=== PATIENT | female | born 1975 | race Caucasian/White ===

== ENCOUNTER 2016-08-06 20:09 | Emergency (ER) | payer MEDICAID ==
[~2016-08-06] VITALS: Ht 160 cm; Wt 94.3 kg
[~2016-08-06 20:09] MED LIST: SIMV20TA1 PO; SYN.025 PO
[2016-08-06 20:12] VITALS: BP 142/84
--- NOTE | 2016-08-06 20:51 | NUR ---
PT TAKEN TO BED 7
--- NOTE | 2016-08-06 20:55 | NUR ---
Dr. Connor evaluating patient at bedside.
--- NOTE | 2016-08-06 20:57 | NUR ---
41Y F BIB SPOUSE C/O OF BILATERAL EAR PAIN AND HEARING LOSS. PAIN IS 8/10 IN SCALE. DENIES N/V/D. NO DIZZINESS.
[2016-08-06 21:16] VITALS: BP 137/81
--- NOTE | 2016-08-06 21:18 | NUR ---
Patient discharged with v/s stable. Written and verbal after care instructions given and explained BY DR. POON Patient alert, oriented and verbalized understanding of instructions. Ambulatory with steady gait. All questions addressed prior to discharge. ID band removed. Patient advised to follow up with PMD. Rx of CERUMENEX EAR DROPS given. Patient educated on indication of medication including possible reaction and side effects. Opportunity to ask questions provided and answered.
== END 2016-08-06 21:18 | disposition home or self-care (01) ==
LOC: MED 20:09
DX: H61.23 Impacted cerumen, bilateral (principal); I10 Essential (primary) hypertension; Z86.73 Personal history of transient ischemic attack (TIA), and cerebral infarction without residual deficits
CPT/HCPCS: 99283

== ENCOUNTER 2016-11-17 18:24 | Emergency (ER) | payer MEDICAID ==
[~2016-11-17] VITALS: Ht 160 cm; Wt 92.5 kg
[2016-11-17 19:01] VITALS: BP 125/76
--- NOTE | 2016-11-17 19:33 | NUR ---
PT TAKEN TO OF3
--- NOTE | 2016-11-17 20:05 | NUR ---
Dr. Connor evaluating patient
[2016-11-17] MEDS ORDERED: ACETAMINOPHEN EXTRA STRENGTH 500 MG TAB PO ONE (20:15)
--- NOTE | 2016-11-17 20:16 | NUR ---
L&D RN OBTAINING HEART TONES IN TRIAGE ROOM
[2016-11-17 20:30] VITALS: BP 117/63
--- NOTE | 2016-11-17 20:30 | NUR ---
Patient discharged with v/s stable. Written and verbal after care instructions given and explained. Patient verbalized understanding. Ambulatory with steady gait. All questions addressed prior to discharge. Advised to follow up with PMD.
== END 2016-11-17 20:30 | disposition home or self-care (01) ==
LOC: MED 18:24
DX: O9A.212 Injury, poisoning and certain other consequences of external causes complicating pregnancy, second trimester (principal); S61.214A Laceration without foreign body of right ring finger without damage to nail, initial encounter; E11.9 Type 2 diabetes mellitus without complications; I10 Essential (primary) hypertension; Z3A.24 24 weeks gestation of pregnancy; Z86.73 Personal history of transient ischemic attack (TIA), and cerebral infarction without residual deficits; W45.8XXA Other foreign body or object entering through skin, initial encounter; Y93.G1 Activity, food preparation and clean up; Y92.89 Other specified places as the place of occurrence of the external cause; Y99.8 Other external cause status
CPT/HCPCS: 12001; 99283

== ENCOUNTER 2018-02-07 21:10 | Emergency (ER) | payer MEDICAID ==
[~2018-02-07] VITALS: Ht 162.6 cm; Wt 92.6 kg
[2018-02-07 21:14] VITALS: BP 130/91
--- NOTE | 2018-02-07 21:19 | NUR ---
PT AMBULATED TO ED SIOBHAN
--- NOTE | 2018-02-07 21:28 | NUR ---
TO ER BED 11
--- NOTE | 2018-02-07 21:30 | NUR ---
PT BIB SELF C/O INJURY TO RT INDEX FINGER. PT STATES SHE WAS AT WORK EARLIER TODAY AND "BENT FINGER BACK ON BOX". +CMS, SKIN INTACT, REDNESS AND SWELLING NOTED.
[2018-02-07] MEDS ORDERED: KETOROLAC 60 MG/2 ML VIAL IM ONE (21:40)
[2018-02-07 22:10] VITALS: BP 127/88
--- NOTE | 2018-02-07 22:10 | NUR ---
Patient discharged with v/s stable. Written and verbal after care instructions given and explained. Patient alert, oriented and verbalized understanding of instructions. Ambulatory with steady gait. All questions addressed prior to discharge. ID band removed. Patient advised to follow up with PMD. Rx of NORCO, MOTRIN given. Patient educated on indication of medication including possible reaction and side effects. Opportunity to ask questions provided and answered.
== END 2018-02-07 22:10 | disposition home or self-care (01) ==
LOC: MED 21:10
DX: S63.610A Unspecified sprain of right index finger, initial encounter (principal); Z86.73 Personal history of transient ischemic attack (TIA), and cerebral infarction without residual deficits; Z90.89 Acquired absence of other organs; Z79.899 Other long term (current) drug therapy; X58.XXXA Exposure to other specified factors, initial encounter; Y93.89 Activity, other specified; Y92.89 Other specified places as the place of occurrence of the external cause; Y99.8 Other external cause status
CPT/HCPCS: 29130; 96372; 99283; J1885; 81025

== ENCOUNTER 2018-07-15 22:44 | Emergency (ER) | payer MEDICAID ==
[~2018-07-15] VITALS: Ht 162.6 cm; Wt 89.8 kg
[2018-07-15 22:44] VITALS: BP 117/74
--- NOTE | 2018-07-15 22:44 | NUR ---
PATIENT AMBULATED TO ER BED 7.
--- NOTE | 2018-07-15 22:50 | NUR ---
PT BIB S/O C/O ABD PAIN. PT STATES LRQ ABD PAIN X1 DAY. 8/10 SHARP PAIN, RADIATES TO RIGHT LOWER BACK. PT DENIES N/V/D; SKIN IS INTACT, PINK/WARM/DRY; AAOX4, PERRL, WITH EVEN AND STEADY GAIT; LUNGS CLEAR BL, BREATHING UNLABORED; HR EVEN AND REGULAR, BL PERIPHERAL PULSES PRESENT; BS ACTIVE X4, NO TENDERNESS TO PALPATION, NO HEPATOSPLENOMEGALLY PALPATED, RESONANT TO PERCUSSION; PT DENIES ANY FEVER, CP, SOB, OR COUGH AT THIS TIME; VSS; PATIENT POSITIONED FOR COMFORT; HOB ELEVATED; BEDRAILS UP X2; BED DOWN. PMH: DENIES RX: DENIES
[2018-07-15] MEDS ORDERED: MORPHINE SULFATE 4 MG/ML SYR IM/IVP ONE (23:05)
[2018-07-15] MEDS ORDERED: ONDANSETRON 4 MG ODT PO ONE (23:05)
[2018-07-15 23:30] LABS: BASOPHILS % (AUTO) 0.7 % (0.0-2.0); EOSINOPHILS # (AUTO) 0.1 K/uL (0-0.4); EOSINOPHILS % (AUTO) 2.5 % (0.0-4.0); HEMATOCRIT 39.1 % (36-48); HEMOGLOBIN 13.4 g/dL (12.0-16.0); LYMPHOCYTES # (AUTO) 2.5 K/uL (2.5-16.5); LYMPHOCYTES % (AUTO) 43.5 % (20.5-51.1); MEAN CORPUSCULAR HEMOGLOBIN 33 pg (27-31); MEAN CORPUSCULAR HGB CONC 34 g/dL (33-37); MEAN CORPUSCULAR VOLUME 95.5 fL (80-94); MONOCYTES # (AUTO) 0.8 K/uL (0.8-1.0); MONOCYTES % (AUTO) 13.1 % (1.7-9.3); NEUTROPHILS # (AUTO) 2.3 K/uL (1.8-7.7); NEUTROPHILS % (AUTO) 40.2 % (42.2-75.2); PLATELET COUNT (AUTO) 230 K/uL (140-450); RED CELL DISTRIBUTION WIDTH 12.8 % (11.6-13.7); WHITE BLOOD COUNT (AUTO) 5.8 K/uL (4.8-10.8)
[2018-07-15 23:42] LABS: APPEARANCE,URINE SLIGHTLY CLOUDY (CLEAR)
[2018-07-15 23:43] LABS: BILIRUBIN,URINE NEGATIVE (NEGATIVE); BLOOD, URINE NEGATIVE (NEGATIVE); COLOR,URINE YELLOW (YELLOW); LEUKOCYTE ESTERASE ,URINE 1+ (NEGATIVE); NITRITE, URINE POSITIVE (NEGATIVE); UGLUCOSE NEGATIVE (NEGATIVE)
[2018-07-15 23:48] LABS: RBC,URINE 0-5 /HPF (0-5)
[2018-07-15 23:49] LABS: WBC,URINE 20-60 /HPF (0-5)
[2018-07-15 23:50] LABS: ALBUMIN 3.6 g/dL (3.4-5.0); ANION GAP 14.1 (8-16); CARBON DIOXIDE 25.2 mmol/L (21-32); CREATININE 0.7 mg/dL (0.6-1.3); POTASSIUM 3.3 mmol/L (3.5-5.1); TOTAL BILIRUBIN 0.4 mg/dL (0.0-1.0)
--- NOTE | 2018-07-16 00:12 | NUR ---
Patient discharged with v/s stable. Written and verbal after care instructions given and explained. Patient alert, oriented and verbalized understanding of instructions. Ambulatory with steady gait. All questions addressed prior to discharge. ID band removed. Patient advised to follow up with PMD. Rx of Erbacon, Cirpfloxacin, and Zofran given. Patient educated on indication of medication including possible reaction and side effects. Opportunity to ask questions provided and answered.
[2018-07-16 01:08] VITALS: BP 121/78
== END 2018-07-16 00:12 | disposition home or self-care (01) ==
LOC: MED 22:44
DX: N39.0 Urinary tract infection, site not specified (principal); E07.9 Disorder of thyroid, unspecified; Z86.73 Personal history of transient ischemic attack (TIA), and cerebral infarction without residual deficits; Z79.899 Other long term (current) drug therapy
CPT/HCPCS: 36415; 74176; 80053; 81001; 81025; 85025; 87086; 96372; 99284; J2270; Q0162

== ENCOUNTER 2019-04-02 18:03 | Emergency (ER) | payer MEDICAID ==
[~2019-04-02] VITALS: Ht 162.6 cm; Wt 91.2 kg
[2019-04-02 18:23] VITALS: BP 128/74
--- NOTE | 2019-04-02 18:25 | NUR ---
RECIEVED PATIENT FROM TRIAGE WITH C/O RIGHT LOWER ABD PAIN X2 DAYS, TOOK MOTRIN 600MG PO TODAY AT 3P WHICH HELPED A LITTLE, THEN STARTED AGAIN, SO SHE CAME TO THE ED. AAOX4 SKIN W/D TO TOUCH. NAD NOTED. AT PRESENT PAIN LEVEL IS 7/10. PENDING MD PUENTE
--- NOTE | 2019-04-02 19:13 | NUR ---
END OF SHIFT REPORT TO 7PM RN.
--- NOTE | 2019-04-02 19:15 | NUR ---
PATIENT SEEN AT BEDSIDE BY ER MD DR HUITRON.
[2019-04-02 19:43] LABS: BASOPHILS % (AUTO) 0.4 % (0.0-2.0); EOSINOPHILS # (AUTO) 0.1 K/uL (0-0.4); EOSINOPHILS % (AUTO) 1.2 % (0.0-4.0); HEMATOCRIT 37.4 % (36-48); HEMOGLOBIN 12.7 g/dL (12.0-16.0); LYMPHOCYTES # (AUTO) 1.8 K/uL (2.5-16.5); LYMPHOCYTES % (AUTO) 22.6 % (20.5-51.1); MEAN CORPUSCULAR HEMOGLOBIN 33 pg (27-31); MEAN CORPUSCULAR HGB CONC 34 g/dL (33-37); MEAN CORPUSCULAR VOLUME 97.1 fL (80-94); MONOCYTES # (AUTO) 0.7 K/uL (0.8-1.0); MONOCYTES % (AUTO) 8.8 % (1.7-9.3); NEUTROPHILS # (AUTO) 5.3 K/uL (1.8-7.7); PLATELET COUNT (AUTO) 243 K/uL (140-450); RED BLOOD CELL COUNT(AUTO) 3.85 MIL/uL (4.20-5.40); RED CELL DISTRIBUTION WIDTH 12.5 % (11.6-13.7); WHITE BLOOD COUNT (AUTO) 7.9 K/uL (4.8-10.8)
[2019-04-02 20:06] LABS: APPEARANCE,URINE CLEAR (CLEAR); BILIRUBIN,URINE NEGATIVE (NEGATIVE); BLOOD, URINE NEGATIVE (NEGATIVE); COLOR,URINE YELLOW (YELLOW); LEUKOCYTE ESTERASE ,URINE NEGATIVE (NEGATIVE); NITRITE, URINE NEGATIVE (NEGATIVE); UGLUCOSE TRACE (NEGATIVE)
[2019-04-02 20:22] LABS: ANION GAP 14.1 (8-16); CARBON DIOXIDE 23.3 mmol/L (21-32); CREATININE 0.5 mg/dL (0.6-1.3); POTASSIUM 3.4 mmol/L (3.5-5.1)
[2019-04-02 20:28] LABS: ALBUMIN 2.8 g/dL (3.4-5.0); TOTAL BILIRUBIN 0.2 mg/dL (0.0-1.0)
[2019-04-02 22:45] VITALS: BP 121/67
--- NOTE | 2019-04-02 22:45 | NUR ---
PT DISCHARGED WITH PAPERWORK. NO MEDICATION RX PROVIDED. EDUCATED PT REGARDING D/C DIAGNOSIS AND INSTRUCTIONS. PT VERBALIZED UNDERSTANDING OF TEACHING. TOLD PT TO FOLLOW UP WITH PCP AND WHEN TO RETURN TO ED. PT AT STABLE CONDITION. ALL QUESTIONS ANSWERED.
== END 2019-04-02 22:45 | disposition home or self-care (01) ==
LOC: MED 18:03
DX: O26.891 Other specified pregnancy related conditions, first trimester (principal); R10.31 Right lower quadrant pain; O24.112 Pre-existing type 2 diabetes mellitus, in pregnancy, second trimester; O10.912 Unspecified pre-existing hypertension complicating pregnancy, second trimester; E11.9 Type 2 diabetes mellitus without complications; Z3A.27 27 weeks gestation of pregnancy; Z86.73 Personal history of transient ischemic attack (TIA), and cerebral infarction without residual deficits; Z86.39 Personal history of other endocrine, nutritional and metabolic disease; Z79.899 Other long term (current) drug therapy
CPT/HCPCS: 36415; 76805; 80053; 81003; 84702; 85025; 86900; 86901; Q0092

== ENCOUNTER 2020-01-21 19:34 | Emergency (ER) | payer MEDICAID ==
[~2020-01-21] VITALS: Ht 157.5 cm; Wt 93.4 kg
[2020-01-21 19:59] VITALS: BP 138/68
[2020-01-21] MEDS ORDERED: diazePAM 5 MG TAB PO ONE (20:30)
[2020-01-21] MEDS ORDERED: KETOROLAC 30 MG/ML VIAL IVP ONE (20:30)
[2020-01-21] MEDS ORDERED: NACL 0.9% 1,000 ML IV ONE (20:30)
[2020-01-21 20:52] LABS: EOSINOPHILS # (AUTO) 0.2 K/uL (0-0.4); EOSINOPHILS % (AUTO) 3.5 % (0.0-4.0); HEMATOCRIT 41.4 % (36-48); HEMOGLOBIN 14.1 g/dL (12.0-16.0); MEAN CORPUSCULAR HEMOGLOBIN 33 pg (27-31); MEAN CORPUSCULAR HGB CONC 34 g/dL (33-37); MONOCYTES # (AUTO) 0.5 K/uL (0.8-1.0); MONOCYTES % (AUTO) 10.8 % (1.7-9.3); NEUTROPHILS % (AUTO) 42.7 % (42.2-75.2); PLATELET COUNT (AUTO) 260 K/uL (140-450); RED BLOOD CELL COUNT(AUTO) 4.31 MIL/uL (4.20-5.40); RED CELL DISTRIBUTION WIDTH 12.7 % (11.6-13.7); WHITE BLOOD COUNT (AUTO) 4.7 K/uL (4.8-10.8)
[2020-01-21 20:57] LABS: ANION GAP 12.5 (8-16); CREATININE 0.8 mg/dL (0.6-1.3); POTASSIUM 3.5 mmol/L (3.5-5.1)
[2020-01-21 22:48] VITALS: BP 118/74
== END 2020-01-21 22:48 | disposition home or self-care (01) ==
LOC: MED 19:34
DX: M54.2 Cervicalgia (principal); I88.9 Nonspecific lymphadenitis, unspecified; M62.838 Other muscle spasm; M54.10 Radiculopathy, site unspecified; E11.9 Type 2 diabetes mellitus without complications; I10 Essential (primary) hypertension; E07.9 Disorder of thyroid, unspecified; Z98.890 Other specified postprocedural states
CPT/HCPCS: 36415; 70491; 80048; 85025; 96361; 96374; 99285; J1885; J7030; Q9967

== ENCOUNTER 2020-02-11 07:15 | Emergency (ER) | payer MEDICAID ==
[~2020-02-11] VITALS: Ht 162.6 cm; Wt 89.8 kg
[2020-02-11 07:18] VITALS: BP 123/76
--- NOTE | 2020-02-11 07:27 | NUR ---
W/C ASSISTED TO BED 4
--- NOTE | 2020-02-11 07:29 | NUR ---
45 y/o female from home c/o left leg pain s/o mechanical fall yesterday. Pt states she slipped on water at her home and hit leg on the ground. No deformities noted. Mild swelling and brusing noted to below the knee. Pt able to ambulate. 6/10 constant throbbing pain. Skin warm, dry, intact. +cms, cap refill <2 sec. VSS
--- NOTE | 2020-02-11 07:30 | NUR ---
Dr Wilson at bedside examining pt
--- NOTE | 2020-02-11 07:31 | NUR ---
Dr. Wilson evaluating patient bedside
--- NOTE | 2020-02-11 07:38 | NUR ---
X-Ray at bedside.
[2020-02-11 08:28] VITALS: BP 123/76
--- NOTE | 2020-02-11 08:30 | NUR ---
Patient discharged with v/s stable. Written and verbal after care instructions given and explained. Patient alert, oriented and verbalized understanding of instructions. Ambulatory with steady gait. All questions addressed prior to discharge. ID band removed. Patient advised to follow up with PMD. Rx of Ibuprofen 600mg given. Patient educated on indication of medication including possible reaction and side effects. Opportunity to ask questions provided and answered.
== END 2020-02-11 08:30 | disposition home or self-care (01) ==
LOC: MED 07:15
DX: M25.562 Pain in left knee (principal); M13.862 Other specified arthritis, left knee; E11.9 Type 2 diabetes mellitus without complications; I10 Essential (primary) hypertension; E07.9 Disorder of thyroid, unspecified; W18.39XA Other fall on same level, initial encounter; Y93.89 Activity, other specified; Y92.89 Other specified places as the place of occurrence of the external cause; Y99.8 Other external cause status
CPT/HCPCS: 73562; 99283; Q0092

== ENCOUNTER 2020-11-19 07:58 | Emergency (ER) | payer MEDICAID ==
[~2020-11-19] VITALS: Ht 162.6 cm; Wt 93.9 kg
[2020-11-19 08:01] VITALS: BP 130/71
--- NOTE | 2020-11-19 08:08 | NUR ---
Patient ambulated to bed 8. RN evaluating the patient at bedside.
--- NOTE | 2020-11-19 08:13 | NUR ---
pt in chair outside per charge.
--- NOTE | 2020-11-19 08:18 | NUR ---
DR TIAN EVALUATING PT OUTSIDE.
[2020-11-19] MEDS ORDERED: ACET-10509 PO (08:22)
[2020-11-19] MEDS ORDERED: IBUP-1842 PO (08:22)
--- NOTE | 2020-11-19 08:26 | NUR ---
45 Y/O F BIB SELF FROM HOME, PATIENT PRESENTS TO ED WITH SORE THROAT, CHILLS, FEVERS, AND HEADACHE SINCE 11/07/20. PT STATES SHE HAD GOTTEN THE 1ST DOSE OF COVID VACCINE AND STARTED HAVING SYMPTOMS. DENIES N/V/D; SKIN IS PINK/WARM/DRY; AAOX4 WITH EVEN AND STEADY GAIT; LUNGS COARSE BL; HR EVEN AND REGULAR; PT DENIES ANY CP OR SOB AT THIS TIME; PATIENT STATES PAIN OF 8/10 AT THIS TIME; VSS; PATIENT POSITIONED FOR COMFORT; PT IS CURRENTLY IN CHAIR OUTSIDE FACILITY PER COVID PRECAUTIONS, ISOLATION ROOM NOT AVAILABLE AT THIS TIME. ER MD MADE AWARE OF PT STATUS. PMH: DENIES CAS
--- NOTE | 2020-11-19 08:34 | NUR ---
PT WAS SWABBED FOR ALVAREZ AND FLU, LEFT AT TOOL ROOM SUPERVISOR, NOTIFIED
[2020-11-19 08:53] VITALS: BP 130/71
--- NOTE | 2020-11-19 08:54 | NUR ---
Patient discharged with v/s stable. Written and verbal after care instructions given and explained. Patient alert, oriented and verbalized understanding of instructions. Ambulatory with steady gait. All questions addressed prior to discharge. ID band removed. Patient advised to follow up with PMD. Rx of TYLENOL, IBUPROFEN given. Patient educated on indication of medication including possible reaction and side effects. Opportunity to ask questions provided and answered.
== END 2020-11-19 08:47 | disposition home or self-care (01) ==
LOC: MED 07:58
DX: B34.9 Viral infection, unspecified (principal); Z20.822 Contact with and (suspected) exposure to COVID-19; E11.9 Type 2 diabetes mellitus without complications; I10 Essential (primary) hypertension; E07.9 Disorder of thyroid, unspecified; Z79.899 Other long term (current) drug therapy
CPT/HCPCS: 87426; 87804; 99283; U0003

== ENCOUNTER 2021-05-30 20:53 | Emergency (ER) | payer MEDICAID ==
[~2021-05-30] VITALS: Ht 162.6 cm; Wt 89.4 kg
[~2021-05-30 20:53] MED LIST changes: +ACET-10509 PO; +IBUP-1842 PO
[2021-05-30 21:24] VITALS: BP 127/84
--- NOTE | 2021-05-30 21:30 | NUR ---
PT SENT TO LOBBY.
--- NOTE | 2021-05-30 21:40 | NUR ---
PT BEING EXAMINED BY DR PEREZ WITH ME PRESENT IN TRIAGE.
[2021-05-30] MEDS ORDERED: BACI-352 TP (21:43)
[2021-05-30] MEDS ORDERED: DOXY-487 PO (21:43)
[2021-05-30 21:50] VITALS: BP 127/84
--- NOTE | 2021-05-30 21:50 | NUR ---
Patient discharged with v/s stable. Written and verbal after care instructions given and explained. Patient alert, oriented and verbalized understanding of instructions. Ambulatory with steady gait. All questions addressed prior to discharge. ID band removed. Patient advised to follow up with PMD. Rx of NEOMYCIN given. Patient educated on indication of medication including possible reaction and side effects. Opportunity to ask questions provided and answered.
== END 2021-05-30 21:50 | disposition home or self-care (01) ==
LOC: MED 20:53
DX: L02.215 Cutaneous abscess of perineum (principal); E11.9 Type 2 diabetes mellitus without complications; I10 Essential (primary) hypertension; E07.9 Disorder of thyroid, unspecified; Z79.899 Other long term (current) drug therapy; Z86.73 Personal history of transient ischemic attack (TIA), and cerebral infarction without residual deficits
CPT/HCPCS: 99283

== ENCOUNTER 2021-06-27 07:05 | Emergency (ER) | payer MEDICAID ==
[~2021-06-27] VITALS: Ht 160 cm; Wt 88.9 kg
[~2021-06-27 07:05] MED LIST changes: +BACI-352 TP; +DOXY-487 PO
[2021-06-27 07:16] VITALS: BP 128/75
--- NOTE | 2021-06-27 07:20 | NUR ---
pt ambulated to bed 06 with even and steady gait, pt providing urine sample at this time.
--- NOTE | 2021-06-27 07:25 | NUR ---
46 Y/O F PRESENTS TO ED WITH NVD. PT STATES STARTED ON TUESDAY. STATES FEVER 101.0 AT HOME, SELF EMDICATED WITH TYLENOL. SKIN IS PINK/WARM/DRY; AAOX4 WITH EVEN AND STEADY GAIT; LUNGS CLEAR BL; HR EVEN AND REGULAR; PT COMPLAINS OF CORE THROAT. PT DENIES ANY CP, SOB, OR COUGH AT THIS TIME; PATIENT STATES PAIN OF 9/10 AT THIS TIME; VSS; PATIENT POSITIONED FOR COMFORT; HOB ELEVATED; BEDRAILS UP X2; BED DOWN. ER MD MADE AWARE OF PT STATUS. PMH: DENIES MEDS: TYLENOL THIS MORNING
[2021-06-27] MEDS ORDERED: ONDANSETRON 4 MG/2 ML VIAL IVP ONE (07:30)
[2021-06-27] MEDS ORDERED: FAMOTIDINE 20 MG/2 ML VIAL IVP ONE (07:30)
--- NOTE | 2021-06-27 07:38 | NUR ---
labs drawn from iv 18g left ac at this time, given to rebecca in lab at this time.
[2021-06-27 07:58] LABS: BASOPHILS % (AUTO) 0.1 % (0.0-2.0); EOSINOPHILS % (AUTO) 0.2 % (0.0-4.0); HEMATOCRIT 40.5 % (36-48); HEMOGLOBIN 14.3 g/dL (12.0-16.0); LYMPHOCYTES # (AUTO) 0.8 K/uL (2.5-16.5); LYMPHOCYTES % (AUTO) 8.6 % (20.5-51.1); MEAN CORPUSCULAR HEMOGLOBIN 33 pg (27-31); MEAN CORPUSCULAR HGB CONC 35 g/dL (33-37); MEAN CORPUSCULAR VOLUME 93.2 fL (80-94); MONOCYTES # (AUTO) 0.6 K/uL (0.8-1.0); MONOCYTES % (AUTO) 5.8 % (1.7-9.3); NEUTROPHILS # (AUTO) 8.2 K/uL (1.8-7.7); NEUTROPHILS % (AUTO) 85.3 % (42.2-75.2); PLATELET COUNT (AUTO) 215 K/uL (140-450); RED BLOOD CELL COUNT(AUTO) 4.35 MIL/uL (4.20-5.40); WHITE BLOOD COUNT (AUTO) 9.6 K/uL (4.8-10.8)
[2021-06-27 08:08] LABS: ALBUMIN 3.6 g/dL (3.4-5.0); ANION GAP 11.9 (8-16); CARBON DIOXIDE 24.3 mmol/L (21-32); CREATININE 0.8 mg/dL (0.6-1.3); POTASSIUM 3.2 mmol/L (3.5-5.1); TOTAL BILIRUBIN 0.5 mg/dL (0.0-1.0)
[2021-06-27] MEDS ORDERED: POTASSIUM CHLORIDE 10 MEQ TABER PO ONE (08:55)
--- NOTE | 2021-06-27 09:02 | NUR ---
water given at this time for po challenge with meds. pt states her epigastric pain is now 0/10 and no nausea at this time.
--- NOTE | 2021-06-27 09:09 | NUR ---
pt taken to ct at this time via wheelchair
--- NOTE | 2021-06-27 09:24 | NUR ---
PT RETURNED FROM CT
--- NOTE | 2021-06-27 09:55 | NUR ---
Patient appears to be resting comfortably in bed. Vital Signs within normal limits. Respirations even and unlabored.
[2021-06-27 11:24] VITALS: BP 131/73
== END 2021-06-27 11:28 | disposition home or self-care (01) ==
LOC: MED 07:05
DX: N20.0 Calculus of kidney (principal); R11.2 Nausea with vomiting, unspecified
CPT/HCPCS: 36415; 74177; 80053; 81002; 81025; 83690; 84484; 85025; 93005; 96374; 96375; 99285; J2405; J3490; Q9967

== ENCOUNTER 2021-06-29 21:09 | Emergency (ER) | payer MEDICAID ==
[~2021-06-29] VITALS: Ht 162.6 cm; Wt 87.5 kg
[2021-06-29 21:15] VITALS: BP 125/82
--- NOTE | 2021-06-29 21:23 | NUR ---
PT TAKEN TO BED 01.
--- NOTE | 2021-06-29 21:36 | NUR ---
46 Y/O F BIB SELF W C/O SORETHROAT 02/08 X1 DAYS, + FEVER HIGHEST OF 100.1. PT REPORTS DIFF SWALLOWING D/T PAIN. PT DENIES ANY CHEST PAIN, COUGH, SOB, N/V/D. PT REPORTS SHE WAS HERE ON SAT FOR N/V/D BUT SYMPTOMS HAVE RESOLVED. PT TOOK TYLENOL APPROX X1 HOURS AGO W/O RELIEF. VSS UPON TRIAGE ASSESSMENT W/O FEVER. PT WOULD LIKE MEDICATION FOR THE SORETHROAT, ERMD MADE AWARE. PMH:DENIES ALLERGIES:DENIES
--- NOTE | 2021-06-29 21:36 | NUR ---
ALVAREZ SAMPLE COLLECTED FROM PT NARES AND SENT TO LAB.
--- NOTE | 2021-06-29 22:04 | NUR ---
Dr. Chan examining patient.
--- NOTE | 2021-06-29 22:40 | NUR ---
STREP SWABS COLLECTED FROM PT THROAT AND SENT TO LAB.
[2021-06-29] MEDS: KETOROLAC 30 MG/ML VIAL IM ONE (22:42)
--- NOTE | 2021-06-29 23:26 | NUR ---
PT REPORTS IMPROVEMENT OF SORE THROAT PAIN.
[2021-06-30] MEDS ORDERED: DEC4 PO (00:41)
[2021-06-30] MEDS ORDERED: IBUP-2213 PO (00:41)
[2021-06-30 01:00] VITALS: BP 105/67
--- NOTE | 2021-06-30 01:00 | NUR ---
Patient discharged with v/s stable. Written and verbal after care instructions given and explained. Patient alert, oriented and verbalized understanding of instructions. Ambulatory with steady gait. All questions addressed prior to discharge. ID band removed. Patient advised to follow up with PMD. Rx of DECADRON, IBUPROFEN given. Patient educated on indication of medication including possible reaction and side effects. Opportunity to ask questions provided and answered.
== END 2021-06-30 01:00 | disposition home or self-care (01) ==
LOC: MED 21:09
DX: J02.8 Acute pharyngitis due to other specified organisms (principal); B97.89 Other viral agents as the cause of diseases classified elsewhere; J35.1 Hypertrophy of tonsils; Z20.822 Contact with and (suspected) exposure to COVID-19; E11.9 Type 2 diabetes mellitus without complications; I10 Essential (primary) hypertension; Z86.73 Personal history of transient ischemic attack (TIA), and cerebral infarction without residual deficits; Z86.39 Personal history of other endocrine, nutritional and metabolic disease; Z79.899 Other long term (current) drug therapy; Z79.1 Long term (current) use of non-steroidal anti-inflammatories (NSAID); Z79.2 Long term (current) use of antibiotics
CPT/HCPCS: 87081; 87426; 96372; 99283; J1885

== ENCOUNTER 2021-10-12 11:19 | Emergency (ER) | payer MEDICAID ==
[~2021-10-12] VITALS: Ht 162.6 cm; Wt 92.5 kg
[~2021-10-12 11:19] MED LIST changes: +DEC4 PO; +IBUP-2213 PO
[2021-10-12 11:24] VITALS: BP 138/84
--- NOTE | 2021-10-12 11:31 | NUR ---
PT AMBULATED TO BATHROOM WITH STEADY GAIT
--- NOTE | 2021-10-12 11:44 | NUR ---
46 Y/O FEMALE C/O RIGHT LOWER QUADRANT ABDOMINAL PAIN X YESTERDAY. DENIES ANY FEVER, URINARY SYMPTOMS, DENIES N/V/D. TOOK MOTRIN 600MG WITH MODERATE EFFECT. PT DENIES ANY ALLEVIATING OR AGRGEVATING FACTORS. PT DENIES CHEST PAIN, SOB. PT DENIES CHILLS. LUNGS CTA. BED LOCKED IN LOWEST POSITION. BED RAILX1. NKA PMH: DENIES
--- NOTE | 2021-10-12 11:58 | NUR ---
DR CORREIA AT BEDSIDE FOR EVAL
--- NOTE | 2021-10-12 11:58 | NUR ---
AT PT BEDSIDE
[2021-10-12] MEDS ORDERED: KETOROLAC 30 MG/ML VIAL IVP ONE (12:00)
--- NOTE | 2021-10-12 12:11 | NUR ---
PT TAKEN TO CT VIA DEBBY
--- NOTE | 2021-10-12 12:15 | NUR ---
LAB DRAWN HANDED TO THERMOSTATIC CONTROLS SUPERVISOR
[2021-10-12 12:53] LABS: BASOPHILS % (AUTO) 0.3 % (0.0-2.0); EOSINOPHILS # (AUTO) 0.1 K/uL (0-0.4); EOSINOPHILS % (AUTO) 0.7 % (0.0-4.0); HEMATOCRIT 40.1 % (36-48); HEMOGLOBIN 13.9 g/dL (12.0-16.0); LYMPHOCYTES # (AUTO) 1.5 K/uL (2.5-16.5); LYMPHOCYTES % (AUTO) 16.3 % (20.5-51.1); MEAN CORPUSCULAR HEMOGLOBIN 33 pg (27-31); MEAN CORPUSCULAR HGB CONC 35 g/dL (33-37); MEAN CORPUSCULAR VOLUME 93.8 fL (80-94); MONOCYTES # (AUTO) 0.6 K/uL (0.8-1.0); MONOCYTES % (AUTO) 6.5 % (1.7-9.3); NEUTROPHILS # (AUTO) 6.8 K/uL (1.8-7.7); NEUTROPHILS % (AUTO) 76.2 % (42.2-75.2); PLATELET COUNT (AUTO) 223 K/uL (140-450); RED BLOOD CELL COUNT(AUTO) 4.27 MIL/uL (4.20-5.40); RED CELL DISTRIBUTION WIDTH 12.6 % (11.6-13.7)
[2021-10-12 12:55] LABS: APPEARANCE,URINE SL CLOUDY (CLEAR); BILIRUBIN,URINE NEGATIVE (NEGATIVE); BLOOD, URINE TRACE-L (NEGATIVE); COLOR,URINE YELLOW (YELLOW); LEUKOCYTE ESTERASE ,URINE NEGATIVE (NEGATIVE); NITRITE, URINE NEGATIVE (NEGATIVE); UGLUCOSE NEGATIVE (NEGATIVE)
[2021-10-12 13:04] LABS: ALBUMIN 3.7 g/dL (3.4-5.0); ANION GAP 12.4 (8-16); CREATININE 0.8 mg/dL (0.6-1.3); POTASSIUM 3.4 mmol/L (3.5-5.1); TOTAL BILIRUBIN 0.6 mg/dL (0.0-1.0)
[2021-10-12 13:09] LABS: RBC,URINE 0-5 /HPF (0-5); WBC,URINE 0-5 /HPF (0-5)
[2021-10-12 13:10] LABS: OTHER CASTS, URINE None Seen /LPF (None Seen)
[2021-10-12] MEDS ORDERED: IBUP-2213 PO (13:46)
[2021-10-12] MEDS ORDERED: ACET-8386 PO (13:46)
[2021-10-12 14:00] VITALS: BP 108/58
--- NOTE | 2021-10-12 14:32 | NUR ---
Patient discharged with v/s stable. Written and verbal after care instructions given and explained. Patient alert, oriented and verbalized understanding of instructions. Ambulatory with steady gait. All questions addressed prior to discharge. ID band removed. Patient advised to follow up with PMD. Rx of IBUPROFEN,HYDROCODONE given. Patient educated on indication of medication including possible reaction and side effects. Opportunity to ask questions provided and answered.
== END 2021-10-12 14:32 | disposition home or self-care (01) ==
LOC: MED 11:19
DX: R10.31 Right lower quadrant pain (principal); Z86.73 Personal history of transient ischemic attack (TIA), and cerebral infarction without residual deficits; Z86.39 Personal history of other endocrine, nutritional and metabolic disease; Z98.890 Other specified postprocedural states; Z79.899 Other long term (current) drug therapy; Z79.1 Long term (current) use of non-steroidal anti-inflammatories (NSAID); Z79.2 Long term (current) use of antibiotics
CPT/HCPCS: 36415; 74176; 80053; 81001; 81025; 83690; 85025; 96374; 99284; J1885

== ENCOUNTER 2022-02-23 12:35 | Emergency (ER) | payer MEDICAID ==
[~2022-02-23] VITALS: Ht 162.6 cm; Wt 92.6 kg
[~2022-02-23 12:35] MED LIST changes: +ACET-8386 PO; +SIMV-372 PO; -SIMV20TA1 PO
[2022-02-23 12:49] VITALS: BP 123/84
--- NOTE | 2022-02-23 12:55 | NUR ---
PT TO TOBIN MCCANN
--- NOTE | 2022-02-23 13:12 | NUR ---
TO ER BED 6
--- NOTE | 2022-02-23 13:20 | NUR ---
47/F WALKED IN C/O LT SIDED ARM AND NECK NUMBNESS ONSET 1 DAY ACCOMPANIED BY SOB AT WORK THIS MORNING. DENIES ANY SOB AT THIS TIME, EQUAL PIPE CLEANER STRENGTH B/L ARM. DENIES FACIAL DROOP OR SPEECH SLUR. AAO4. PMH: NONE.
[2022-02-23] MEDS ORDERED: KETOROLAC 30 MG/ML VIAL IM ONE (13:50)
[2022-02-23] MEDS ORDERED: NAPR-1704 PO (14:27)
[2022-02-23] MEDS ORDERED: CAPS1ADH5 TP (14:27)
[2022-02-23 14:50] VITALS: BP 123/84
--- NOTE | 2022-02-23 14:50 | NUR ---
Patient discharged with v/s stable. Written and verbal after care instructions FOR MUSCLE SPRAIN given and explained. Patient alert, oriented and verbalized understanding of instructions. Ambulatory with steady gait. All questions addressed prior to discharge. ID band removed. Patient advised to follow up with PMD. Rx of NAPROXEN AND SALONPAS given. Opportunity to ask questions provided and answered.
--- NOTE | 2022-02-23 14:51 | NUR ---
Chart checked and completed. The patient's care was reviewed and supervised by Sudha Burnett RN.
== END 2022-02-23 14:50 | disposition home or self-care (01) ==
LOC: MED 12:35
DX: S46.811A Strain of other muscles, fascia and tendons at shoulder and upper arm level, right arm, initial encounter (principal); E07.9 Disorder of thyroid, unspecified; Z86.73 Personal history of transient ischemic attack (TIA), and cerebral infarction without residual deficits; Z79.899 Other long term (current) drug therapy; X58.XXXA Exposure to other specified factors, initial encounter; Y93.89 Activity, other specified; Y92.89 Other specified places as the place of occurrence of the external cause; Y99.8 Other external cause status
CPT/HCPCS: 81002; 81025; 96372; 99283; J1885

== ENCOUNTER 2022-07-15 11:09 | Emergency (ER) | payer MEDICAID ==
[~2022-07-15] VITALS: Ht 162.6 cm; Wt 88.7 kg
[~2022-07-15 11:09] MED LIST changes: -ACET-8386 PO; +ACET-8905 PO; +CAPS1ADH5 TP; +NAPR-1704 PO
[2022-07-15 11:24] VITALS: BP 124/65
[2022-07-15] MEDS ORDERED: ONDANSETRON 4 MG ODT PO ONE (11:30)
--- NOTE | 2022-07-15 11:30 | NUR ---
PT AMB TO BED 7
[2022-07-15 11:56] LABS: BASOPHILS % (AUTO) 0.5 % (0.0-2.0); EOSINOPHILS # (AUTO) 0.1 K/uL (0-0.4); EOSINOPHILS % (AUTO) 1.9 % (0.0-4.0); HEMOGLOBIN 13.5 g/dL (12.0-16.0); LYMPHOCYTES # (AUTO) 1.8 K/uL (2.5-16.5); LYMPHOCYTES % (AUTO) 28.5 % (20.5-51.1); MEAN CORPUSCULAR HEMOGLOBIN 33 pg (27-31); MEAN CORPUSCULAR HGB CONC 35 g/dL (33-37); MEAN CORPUSCULAR VOLUME 94.4 fL (80-94); MONOCYTES # (AUTO) 0.5 K/uL (0.8-1.0); MONOCYTES % (AUTO) 7.6 % (1.7-9.3); NEUTROPHILS # (AUTO) 3.8 K/uL (1.8-7.7); NEUTROPHILS % (AUTO) 61.5 % (42.2-75.2); PLATELET COUNT (AUTO) 260 K/uL (140-450); RED BLOOD CELL COUNT(AUTO) 4.13 MIL/uL (4.20-5.40); RED CELL DISTRIBUTION WIDTH 13.1 % (11.6-13.7); WHITE BLOOD COUNT (AUTO) 6.3 K/uL (4.8-10.8)
--- NOTE | 2022-07-15 12:35 | NUR ---
US AT BEDSIDE
[2022-07-15 12:40] LABS: ALBUMIN 3.5 g/dL (3.4-5.0); ANION GAP 10.1 (8-16); CARBON DIOXIDE 30.6 mmol/L (21-32); CREATININE 0.8 mg/dL (0.6-1.3); TOTAL BILIRUBIN 0.2 mg/dL (0.0-1.0)
[2022-07-15 12:47] LABS: POTASSIUM 2.7 mmol/L (3.5-5.1)
[2022-07-15] MEDS ORDERED: POTASSIUM CHLORIDE 10 MEQ TABER PO ONE (13:00)
--- NOTE | 2022-07-15 13:59 | NUR ---
pt swabbed for covid(nathaly). walked to lab
[2022-07-15 14:00] VITALS: BP 125/66
[2022-07-15] MEDS ORDERED: IMO2 PO (14:12)
[2022-07-15] MEDS ORDERED: ONDA-188 PO (14:18)
[2022-07-15] MEDS ORDERED: PENICILLIN G BENZATHINE L-A 1.2 MU/2 ML SYR IM ONE (14:25)
[2022-07-15] MEDS ORDERED: DEXAMETHASONE 4 MG/ML VIAL PO ONE (14:30)
--- NOTE | 2022-07-15 15:07 | NUR ---
Patient discharged with v/s stable. Written and verbal after care instructions given and explained. Patient alert, oriented and verbalized understanding of instructions. Ambulatory with steady gait. All questions addressed prior to discharge. ID band removed. Patient advised to follow up with PMD. Rx of LOPERAMIDE AND ZOFRAN ODT given. Opportunity to ask questions provided and answered.
--- NOTE | 2022-07-15 15:30 | NUR ---
The patient's care was reviewed and supervised by Teressa Wilkes RN.
== END 2022-07-15 15:07 | disposition home or self-care (01) ==
LOC: MED 11:09
DX: R10.13 Epigastric pain (principal); R10.11 Right upper quadrant pain; R11.2 Nausea with vomiting, unspecified; R19.7 Diarrhea, unspecified; E87.6 Hypokalemia; J02.0 Streptococcal pharyngitis; Z86.39 Personal history of other endocrine, nutritional and metabolic disease; Z86.73 Personal history of transient ischemic attack (TIA), and cerebral infarction without residual deficits; Z79.899 Other long term (current) drug therapy; Z79.1 Long term (current) use of non-steroidal anti-inflammatories (NSAID); Z79.891 Long term (current) use of opiate analgesic; Z79.2 Long term (current) use of antibiotics
CPT/HCPCS: 36415; 76705; 80053; 81025; 83690; 85025; 87081; 96372; 99285; J0561; J1100; Q0162

== ENCOUNTER 2022-12-30 19:56 | Emergency (ER) | payer MEDICAID ==
[~2022-12-30] VITALS: Ht 162.6 cm; Wt 88.5 kg
[~2022-12-30 19:56] MED LIST changes: +IMO2 PO; +ONDA-188 PO
[2022-12-30 20:19] VITALS: BP 121/74; PULSE 74; RESP 18; TEMP 97.8; O2SAT 95
[2022-12-30] MEDS ORDERED: DEXT120S59 PO (20:19)
[2022-12-30 20:27] VITALS: BP 121/74; PULSE 74; RESP 18; TEMP 97.8; O2SAT 95
== END 2022-12-30 20:27 | disposition home or self-care (01) ==
LOC: MED 19:56
DX: R05.9 Cough, unspecified (principal); E07.9 Disorder of thyroid, unspecified; Z79.899 Other long term (current) drug therapy; Z86.73 Personal history of transient ischemic attack (TIA), and cerebral infarction without residual deficits
CPT/HCPCS: 99282

== ENCOUNTER 2023-12-04 23:02 | Emergency (ER) | payer MEDICAID ==
[~2023-12-04] VITALS: Ht 162.6 cm; Wt 84.8 kg
[~2023-12-04 23:02] MED LIST changes: +DEXT120S59 PO
[2023-12-04 23:05] VITALS: BP 139/76; PULSE 79; RESP 18; TEMP 97.5; O2SAT 97
[2023-12-05 01:23] VITALS: BP 139/76; PULSE 79; RESP 18; TEMP 98; O2SAT 97
== END 2023-12-05 01:23 | disposition home or self-care (01) ==
LOC: MED 23:02
DX: O99.891 Other specified diseases and conditions complicating pregnancy (principal); F43.9 Reaction to severe stress, unspecified; Z86.73 Personal history of transient ischemic attack (TIA), and cerebral infarction without residual deficits; Z3A.00 Weeks of gestation of pregnancy not specified; Z79.1 Long term (current) use of non-steroidal anti-inflammatories (NSAID); Z79.2 Long term (current) use of antibiotics; Z79.899 Other long term (current) drug therapy; Z86.39 Personal history of other endocrine, nutritional and metabolic disease
CPT/HCPCS: 70450; 99284